=== PATIENT | female | born 1940 | race Two or more races ===

== ENCOUNTER 2019-07-15 12:15 | Emergency (ER) | payer MEDICARE ==
[~2019-07-15] VITALS: Ht 162.6 cm; Wt 83.3 kg
[2019-07-15 12:16] VITALS: BP 168/63
[2019-07-15] MEDS ORDERED: ASPI-496 PO (12:40)
[2019-07-15] MEDS ORDERED: CITA20TA6 PO (12:40)
[2019-07-15] MEDS ORDERED: HYDR25TA6 PO (12:41)
[2019-07-15] MEDS ORDERED: SIMV80TA18 PO (12:41)
[2019-07-15] MEDS ORDERED: CHOL10003 PO (12:42)
[2019-07-15] MEDS ORDERED: METOCLOPRAMIDE 5 MG/ML, 2ML IVPush ONE (13:30)
[2019-07-15] MEDS ORDERED: ACETAMINOPHEN 325 MG TABLET PO ONE (13:30)
[2019-07-15] MEDS ORDERED: DIPHENHYDRAMINE 50 MG/ML, 1ML IVPush ONE (13:30)
--- NOTE | 2019-07-15 13:37 | NUR ---
PT AMBULATED TO BATHROOM W STEADY GATE. UA COLLECTED
[2019-07-15] MEDS ORDERED: DIPHENHYDRAMINE 50 MG/ML, 1ML ONE (13:44)
[2019-07-15] MEDS ORDERED: METOCLOPRAMIDE 5 MG/ML, 2ML ONE (13:44)
[2019-07-15] MEDS ORDERED: ACETAMINOPHEN 325 MG TABLET ONE (13:45)
[2019-07-15 14:03] LABS: MICROSCOPIC AUTO
--- NOTE | 2019-07-15 14:08 | NUR ---
pt back from ct. medicated per orders
[2019-07-15 14:09] LABS: BASOPHILS # (AUTO) 0.04 x10^3/uL (0-0.1); BASOPHILS % (AUTO) 1 % (0-1); EOSINOPHILS # (AUTO) 0.11 x10^3/uL (0-0.4); EOSINOPHILS % (AUTO) 2 % (1-7); LYMPHOCYTES # (AUTO) 1.65 x10^3/uL (1-3.4); LYMPHOCYTES % (AUTO) 29 % (22-44); MD NO; MEAN CORPUSCULAR HEMOGLOBIN 31.2 pg (27.0-34.8); MEAN CORPUSCULAR HGB CONC 33.5 g/dL (32.4-35.8); MEAN CORPUSCULAR VOLUME 93.2 fL (80-100); MEAN PLATELET VOLUME 9.8 fL (7.4-10.4); MONOCYTES # (AUTO) 0.42 x10^3/uL (0.2-0.8); MONOCYTES % (AUTO) 7 % (2-9); NEUTROPHILS # (AUTO) 3.52 x10^3/uL (1.8-6.8); NEUTROPHILS % (AUTO) 61 % (42-75); PLATELET COUNT 217 x10^3/uL (130-400); RED CELL DISTRIBUTION WIDTH 13.8 % (9.6-15.2)
[2019-07-15 14:10] LABS: INTERNATIONAL NORMALIZED RATIO 1.01 (0.93-1.1); PROTHROMBIN TIME 10.7 Seconds (9.6-11.5)
[2019-07-15 14:14] LABS: ALBUMIN 3.8 g/dL (3.4-5.0); ANION GAP 8 mmol/L (5-15); CALCIUM 9.1 mg/dL (8.5-10.1); CHLORIDE 107 mmol/L (98-107)
[2019-07-15 14:19] LABS: ALANINE AMINOTRANSFERASE 19 U/L (12-78); ALKALINE PHOSPHATASE 63 U/L (45-117); BILIRUBIN,TOTAL 0.6 mg/dL (0.2-1.0); CREATININE 0.76 mg/dL (0.55-1.02); TOTAL PROTEIN 6.9 g/dL (6.4-8.2)
--- NOTE | 2019-07-15 15:14 | NUR ---
Patient/Caregiver given discharge instructions and they have confirmed that they understand the instructions. Patient ambulatory with steady gait.
== END 2019-07-15 15:16 | disposition home or self-care (01) ==
LOC: ED 14:55
DX: R51 Headache (principal); M54.2 Cervicalgia; R05 Cough; R94.31 Abnormal electrocardiogram [ECG] [EKG]; I10 Essential (primary) hypertension; E78.00 Pure hypercholesterolemia, unspecified; Z86.73 Personal history of transient ischemic attack (TIA), and cerebral infarction without residual deficits; F17.200 Nicotine dependence, unspecified, uncomplicated
CPT/HCPCS: 36415; 70450; 80053; 81001; 85025; 85610; 85730; 87086; 93005; 96374; 96375; 99285; J1200; J2765